=== PATIENT | male | born 1930 | race Caucasian/White ===

== ENCOUNTER 2016-07-26 15:53 | Inpatient (IN) | payer MEDICARE, OTHER ==
--- NOTE | ~2016-07-26 | CN ---
Consultation Report [facility] [address] [place]. [address] NAME: LORENA LARA : 31 STATUS : ADM IN PAT#: [id number] AGE: 86 ADM/REG DATE : 07/26/16 MR#: [id number] REPORT SERV DATE: 07/27/16 DICTATED BY: HILARIO EVANS DATE: 07/27/16 REPORT STATUS : Draft TRANSCRIBED BY: MODL DATE: 07/27/16 CARDIOLOGY CONSULTATION DATE OF CONSULTATION: 07/27/2016 REASON FOR CONSULTATION: CAD, permanent atrial fibrillation with chronic anticoagulation, and chronic systolic congestive heart failure with implantable defibrillator. HISTORY OF PRESENT ILLNESS: An 86-year-old male with severe COPD and cardiac disease, who presents with primary complaints of constipation, low abdominal/inguinal pain and worsening dyspnea. The patient with marked leukocytosis with a WBC of greater than 40,000, elevated lactate on admission. No findings consistent with acute CHF exacerbation clinically; however, beta natriuretic peptide elevated to 711. Minimally elevated troponins of 0.12 and 0.12. The patient denies chest pain. Reports chronic dyspnea, which has become worsened. Denies any defibrillator discharge. He also reports significant dysuria and as previously stated, constipation. At time of presentation reported no bowel movement for three days. He had attempted treatment with magnesium citrate without relief. The patient was admitted for sepsis and begun treatment for the same. No obvious etiology for elevated white count on presentation. I am begun on empiric antibiotics. PAST MEDICAL HISTORY: 1. 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 2. Coronary artery disease with previous CAMRYN to left circumflex in 2014 and balloon angioplasty only to LAD lesion due to heavy calcification and inability to cross the lesion with a stent. 3. Permanent atrial fibrillation, rate controlled. 4. The patient declines chronic anticoagulation due to previous history of GI bleed. 5. Chronic systolic congestive heart failure/ischemic cardiomyopathy with ejection fraction of 40% by echo, 03/18/2016. 6. Defibrillator in situ, [employer]tronic brand dual-chamber device, the most recent generator replacement on 07/19/2012. a. Previous pulmonary and hepatic toxicity related amiodarone. 7. Mitral regurgitation, mild echo on 02/2016. 8. Chronic kidney disease, stage III. 9. Hypertension. 10.Hyperlipidemia. 11.History of colorectal carcinoma status post partial colectomy. 12.Obstructive sleep apnea. 13.Peripheral neuropathy. 14.Type 2 diabetes mellitus. SOCIAL HISTORY: Denies tobacco, alcohol, or illicit drug use. The patient denies tobacco use for the last 10 years. Consultation Report [place] [address] [place]. [address] NAME: LORENA LARA : 31 STATUS : ADM IN PAT#: [id number] AGE: 86 ADM/REG DATE : 07/26/16 MR#: [id number] REPORT SERV DATE: 07/27/16 DICTATED BY: HILARIO EVANS DATE: 07/27/16 REPORT STATUS : Draft TRANSCRIBED BY: BON DATE: 07/27/16 FAMILY HISTORY: Noncontributory. ALLERGIES: AMIODARONE WITH PULMONARY AND HEPATIC TOXICITY IN THE PAST, INFLUENZA VACCINE WITH SUBCUTANEOUS REACTION DIFFUSELY. REVIEW OF SYSTEMS: Negative for all organ systems except per the history of present illness. PHYSICAL EXAMINATION: VITALS: Blood pressure 138/63, pulse 69 and regular, respirations 20 and unlabored, saturating 97% on 3 L nasal cannula, weight 84 kg. GENERAL: Elderly overweight male, in no acute distress. HEENT: Normal. NECK: Supple, no JVD or bruit, normal carotid upstroke bilaterally, no thyromegaly. LUNGS: Diffuse wheezing in all lung rodriguez. CARDIOLOGY: Regular rhythm, normal S1, S2, no thrill, no murmur, rubs or gallops, normal PMI. ABDOMEN: Mild tenderness to palpation diffusely. No peritoneal signs. EXTREMITIES: 1+ pitting edema at the ankles bilaterally. SKIN: Warm and dry, no significant rash. NEUROLOGIC: Alert and oriented x 3. Appropriate mood. LABORATORY DATA: Sodium 135, potassium 3.3, chloride 87, CO2 of 32, BUN 76, creatinine 1.97, GFR 35, glucose 135, magnesium 3.1. WBC 40.8, hemoglobin 13.7, hematocrit 41.7, platelets 133,000. Serial troponin 0.12 and 0.12. Beta natriuretic peptide yesterday 711. IMPRESSION: 1. Chronic systolic congestive heart failure, no significant volume overload by exam. Continue current medications. 2. Nonsustained ventricular tachycardia, currently on sotalol. No defibrillator discharge. Continue same. 3. Coronary artery disease, minimal troponin elevations. It has felt consistent with a demand-related event. No symptoms of ischemia/chest pain. Continue current medications. 4. Permanent atrial fibrillation as he has adequate rate control on current medications/sotalol. Continue the same. The patient has previously the declined chronic anticoagulation due to recurrent gastrointestinal bleeds. 5. Leukocytosis with dysuria, abdominal pain, and constipation/fecal impaction, currently being managed by the primary care physician. Thank you for the opportunity to see the patient in consultation. We will continue to follow the patient with you to ensure stable cardiac status over the next several days. Consultation Report [facility] [address] [facility] [place]. [address] NAME: LORENA LARA : 31 STATUS : ADM IN [facility]#: [id number] AGE: 86 ADM/REG DATE : 07/26/16 MR#: [id number] REPORT SERV DATE: 07/27/16 DICTATED BY: HILARIO EVANS DATE: 07/27/16 REPORT STATUS : Draft TRANSCRIBED BY: BON DATE: 07/27/16 CSL/BON Thalia Evans M.D. / [id number] CC: Valerie Manzanares M.D.
--- NOTE | ~2016-07-26 | DS ---
Discharge Summary [place] [address] [facility] [place]. [address] NAME: LORENA LARA : 31 STATUS : ADM IN [facility]#: [id number] AGE: 86 ADM/REG DATE : 07/26/16 MR#: [id number] REPORT SERV DATE: 07/29/16 DICTATED BY: FABIOLA JIMÉNEZ DATE: 07/29/16 REPORT STATUS : Draft TRANSCRIBED BY: MODL DATE: 07/29/16 ADMISSION DATE: 07/26/2016 DISCHARGE DATE: 07/29/2016 DISCHARGE DIAGNOSES: 1. Acute on chronic respiratory failure, improved back to his normal respiratory status. 2. Chronic obstructive pulmonary disease exacerbation. 3. Fecal impaction, disimpacted having daily bowel movement without any problem. We are adding MiraLAX powder once a day. 4. Persistent leukocytosis. We doubt infectious etiology. 5. Chronic systolic heart failure, improved and stable. 6. Diabetes mellitus, had episode of hypoglycemia with his home regimen and the patient was reluctant to change any insulin regimen. 7. Nonsustained ventricular tachycardia, his beta-donna has been increased to Toprol-XL 150 mg once a day by Dr. Bolaños. 8. Urinary retention status post Martin catheter insertion. Discussed with Dr. Li and recommended going home with Martin catheter and he will evaluate this patient as an outpatient. CONSULTANTS: 1. Thalia Evans M.D. 2. William Bolaños M.D. HISTORY OF PRESENT ILLNESS: This is an 86-year-old male patient, who does have a severe COPD with heart failure, came in to the hospital with palpitation and short of breath. Please see dictated H and P. HOSPITAL COURSE: He was admitted to the hospital with a respiratory failure with fecal impaction. He had a manually disimpaction done and his breathing status has been improved. Meanwhile, he was treated for both condition and COPD exacerbation and heart failure exacerbation mildly and improved. During the hospitalization, he was found to have nonsustained ventricular tachycardia, which was treated with the increasing dose of beta-donna. Seen by Dr. Bolaños throughout the hospitalization. Overall, he had improvement and stable hospitalization. Seen by the physical therapist, recommended home and home health and he refused to have a home health service. He does have his home exercise regimen at home and he will like to continue that his own way. Again for his fecal impaction, it was disimpacted and then recommended taking extra MiraLAX powder. Maximized inpatient benefit, will be discharged to home with followup with Dr. Evans. During this hospitalization, he had echocardiogram that showed a slight decrease of left Discharge Summary [facility] [address] [place] [address] NAME: LORENA LARA : 31 STATUS : ADM IN PAT#: [id number] AGE: 86 ADM/REG DATE : 07/26/16 MR#: [id number] REPORT SERV DATE: 07/29/16 DICTATED BY: FABIOLA JIMÉNEZ DATE: 07/29/16 REPORT STATUS : Draft TRANSCRIBED BY: BON DATE: 07/29/16 ventricular function down to 30% and it showed a moderate mitral regurgitation and left atrial enlargement. Overall, he had improvement and maximized benefit from inpatient care and will be discharged to home in stable condition. DISCHARGE MEDICATIONS: 1. Sotalol was increased to 120 mg once at nighttime. 2. Metoprolol was increased to 150 mg once a day. 3. We will continue Lasix 80 mg once a day, Zaroxolyn as needed, and continue Proscar 5 mg once a day, Colace twice a day and Lipitor 40 mg once at nighttime, aspirin 81 mg once a day, and potassium 20 mEq three times a day, Neurontin 200 mg twice a day, Nexium 20 mg once in the morning time, Flomax 0.4 mg once at nighttime, Spiriva once a day, Symbicort twice a day, Proventil as needed and we are changing digoxin to every other day due to the high level. 4. He was on the Levemir 70 unit twice a day with NovoLog 50 units for each meal and he will like to continue this regimen based on primary care's recommendation. DISPOSITION: The patient is discharged to home. Follow up with Dr. Li and primary care physician. TIME SPENT: More than 30 minutes in discharge and coordination. EKL/MODL Fabiola Jiménez M.D. / [id number] CC: Valerie Wang M.D.
--- NOTE | ~2016-07-26 | HP ---
History And Physical [place] [id number] [facility] [place]. [address] NAME: LORENA RODARTE : 31 STATUS : ADM IN [facility]#: [id number] AGE: 86 ADM/REG DATE : 07/26/16 MR#: [id number] REPORT SERV DATE: 07/27/16 DICTATED BY: PRSETON CAMPOS DATE: 07/27/16 REPORT STATUS : Draft TRANSCRIBED BY: MODL DATE: 07/27/16 DATE OF ADMISSION: 07/26/2016 CHIEF COMPLAINT: Shortness of breath and constipation. HISTORY OF PRESENT ILLNESS: This is an 86-year-old male, who presents to the emergency room at [facility] with the above-mentioned complaint. History is obtained from the patient, his who is at bedside, and reviewing data available on the [employer] system. Mr. Rodarte is an 86-year-old gentleman, who started having shortness of breath this morning. He has been having constipation for the last three to four days and they had tried just about everything qvlq-vbr-asslgsm what they had. He had even tried a whole tube of magnesium citrate. He states he also had a cough, productive of greenish sputum since and this has progressively worsened as well. He has had dysuria for two to three days now. He says he feels like he has to go often and it cisneros when he passes urine. They finally decided to come to the emergency room to be evaluated. In the emergency room, initial workup revealed that he had ymoox-bc-wunlkvk systolic and diastolic heart failure. He had an elevated troponin of 0.12, lactate of 2.9, BNP was 711 and he also had a white count of 40.8. His chest x-ray showed left-sided infiltrate when compared to previous films. Hospitalist Service is asked to admit him for further evaluation and treatment. At the time of my evaluation, he denied any chest pain or palpitations. He had no orthopnea. He did have a cough, productive of greenish sputum. Denied any hemoptysis, night sweats, or weight loss during this time. He has had no recent falls or loss of consciousness. Did have some fever, low-grade and he did feel chills. No history of nausea and vomiting. No history of diarrhea, but instead constipation for the last three to four days. No other history of recent travel or exposures. He denied any hematemesis or hematochezia or hematuria. PAST MEDICAL HISTORY: Significant for history of hypertension, ischemic cardiomyopathy with AICD placement, diabetes mellitus type 2, colon cancer status post resection. He also has history of lung cancer. He has chronic kidney disease; chronic hypoxic respiratory failure, on supplemental oxygen therapy. He also has a history of nonsustained ventricular tachycardia and persistent leukocytosis. SOCIAL HISTORY: He does not smoke, drink, or use recreational drugs. FAMILY HISTORY: Noncontributory. MEDICATIONS: His medications at home were reviewed by me in the chart today and reordered by me. REVIEW OF SYSTEMS: History And Physical [address] [address] NAME: LORENA RODARTE : 31 STATUS : ADM IN PAT#: [id number] AGE: 86 ADM/REG DATE : 07/26/16 MR#: [id number] REPORT SERV DATE: 07/27/16 DICTATED BY: PRESTON CAMPOS DATE: 07/27/16 REPORT STATUS : Draft TRANSCRIBED BY: BON DATE: 07/27/16 As in history of present illness. All other systems were reviewed in detail and quite unremarkable. PHYSICAL EXAMINATION: GENERAL: This is a pleasant 86-year-old, not in any acute distress. HEENT: Head is atraumatic, normocephalic. He is alert, awake, oriented to time, place, and person. Pupils are equal, reacting to light and accommodating. External ocular muscles are intact. Membranes are moist and pink. Sclerae are nonicteric. NECK: Supple with no jugular venous distention, lymphadenopathy, or thyromegaly. LUNGS: Auscultation of his lungs revealed fair to good air entry bilaterally with no wheezes, rubs, or crackles. There were no expiratory wheezes. HEART: Heart sounds were regular with no murmurs, rubs, or gallops. ABDOMEN: Soft, nontender. Bowel sounds are present. EXTREMITIES: Showed no cyanosis, clubbing, or edema. NEUROLOGIC: Grossly intact. No focal sensory or motor deficits. Higher functions appeared intact. He was able to move all four extremities. VITAL SIGNS: His temperature today was 99.6 degrees Fahrenheit upon arrival. His pulse was 71, respirations were 18 a minute, and blood pressure upon arrival was 137/67. Oxygen saturations were 97% on 2 L via nasal cannula. LABORATORY DATA: Reviewed on the [employer] system showed a pH of 7.54, pCO2 of 39, PaO2 of 71, and bicarbonate was 32.4. This was on 4 L via nasal cannula. CMP showed a sodium of 135, potassium was 3.3, chloride 87, CO2 of 34, BUN was 76 with a creatinine of 1.97, which is about his baseline. His glucose was 158. Initial troponin was 0.12, this is up from his baseline of 0.4. His BNP today was 711.2. CBC showed a white blood cell count of 40,800, this is almost doubled to where it was. He was in the 20,000 to 23,000 usually. Hemoglobin was 13.7 today, hematocrit 41.7, platelet count was 133,000. Urinalysis was grossly unremarkable. Films of the chest x-ray were reviewed by me on the PACS today. Today's films were compared to prior films available on the PACS as well. Today's films show normal bony architecture with a left-sided AICD and cardiomegaly. There is a small right lower lobe infiltrate when compared to prior films. A 12-lead EKG done in the emergency room was reviewed and interpreted by me. There is ventricular paced rhythm at 70. IMPRESSION: 1. Shortness of breath. 2. Dysuria. 3. Vyaxo-cc-obotcws systolic and diastolic congestive heart failure. 4. Elevated troponin. 5. Sepsis. 6. Pneumonia. 7. Leukocytosis. 8. Volume overload. 9. Hypertension. 10.Ischemic cardiomyopathy with an AICD placed. 11.Diabetes mellitus type 2. 12.Persistent leukocytosis. 13.Chronic kidney disease. History And Physical [address] [address] NAME: LORENA RODARTE : 31 STATUS : ADM IN [facility]#: [id number] AGE: 86 ADM/REG DATE : 07/26/16 MR#: [id number] REPORT SERV DATE: 07/27/16 DICTATED BY: PRESTON CAMPOS DATE: 07/27/16 REPORT STATUS : Draft TRANSCRIBED BY: MODL DATE: 07/27/16 PLAN: We will admit Mr. Rodarte to the Hospitalist Service on telemetry bed. We will start him on intravenous diuretics. Follow daily weights and outputs and also get an echocardiogram. We will go ahead and consult his compo conveyor operator, Dr. Evans to see him here. Follow serial troponins and rule out acute coronary syndrome. After cultures are obtained, we will start him on empiric IV antibiotics. We will start him on Zosyn and vancomycin and check his procalcitonin level as well. We will start him on blood sugar control with NovoLog given subcutaneously per sliding scale as well. He is currently not on anticoagulation because of the risk of bleeding. We will continue all other medications and treatments at this time and place him on unfractionated heparin for DVT prophylaxis while here. Please see today's orders for details. I have discussed the above plans with the patient. His questions were answered and he is agreeable to the above recommendations. Hospitalist Service will be following him during his stay here. /MODL Preston Campos M.D. / [id number] CC: Valerie Manzanares M.D.
[~2016-07-26 15:53] MED LIST: ACET500CAP PO; ADVAIR250 INH; ALBUTEROL SULFATE INH; ALBUTEROL5 INH; AMARYL1 MG PO; ANTARA PO; ASA5GR PO; ASAB PO; ASABAYER PO; BETAPACE AF120 MG PO; BUM1 PO; BUM2 PO; BYETTA10 SC; CARDU4 PO; CARDURA XL4 MG PO; CEFT5 PO; CIP5 PO; CO Q-10100 MG PO; COQ10100 MG PO; COREG12 PO; COREG6 PO; CORTISONE SHOT SC; CRESTOR20 MG PO; CRESTOR40 MG PO; DIGITEK0.125 MG PO; DSS PO; FLEX PO; FLOMAX4 PO; FRESHKOTE OPH; GLUCOPHAGE1000 MG PO; HEMOCYTE324 MG PO; IMDUR30 PO; INTEGRA PLUS C1 EACH PO; INTEGRA PO; IRON325 MG PO; JANTOVEN2 MG PO; JANTOVEN3 MG PO; K-TABS10 MEQ PO; KLOR-CON 1010 MEQ PO; KLOR-CON M2020 MEQ PO; L80 PO; LEVAQUIN750 MG PO; LEVEMIR SC; LIPITOR40 PO; LOP100 PO; LOVAZA1 GM PO; LYRICA50 PO; MAGNESIUM PO; MAGONATE PO; MAGOX4 PO; MAGTRATE500 MG PO; MIRALAXPKT PO; NEUR100 PO; NEXIUM20 M1 PO; NORV25 PO; NOVOLOG SC; NOVOLOG SQ; P10 PO; PLAVIX PO; POT CHLOR PO; POT GLUCONAT595 M1 PO; PROAIR HFA PO; PROSCAR5 PO; PROTONIX PO; PROVENTSOL INH; SLOW FE160 MG PO; SPIRIVA INH; SPIRO25 PO; STOOL SOFTEN100 MG PO; SYMBICORT 160/41 INH INH; SYMBICORT PO; TOPXL100 PO; TOPXL50 PO; TRICOR145 PO; VITAMIN D1000 UNI1 PO; VITAMIN D31000 UNIT PO; ZAROX2.5B PO; ZESTRIL5 MG PO; [UNRECOGNIZED DRUG - OTHER] PO
[2016-07-26 20:34] LABS: ASCORBIC ACID (UR NOT ORDER) NEG (NEG); BILIRUBIN, URINE NEGATIVE (NEG); ER URINALYSIS TAT 0 Hrs 09 Mins; KETONE, URINE NEGATIVE (NEG); LEUKOCYTE ESTERASE(NOT OR NEG (NEG); NITRITE (URINE) NEG (NEG); WBC (NOT ORDERED) (RFLEX) < 1 (0-5)
[2016-07-26 20:38] LABS: BASOPHILS 0.3 %; BASOPHILS ABSOLUTE 0.11 10/3/uL (0.0-0.16); EOSINOPHILS 0 %; EOSINOPHILS ABSOLUTE 0.01 10/3/uL (0.0-0.53); IMMATURE GRANULOCYTES 2.1 %; LYMPHOCYTES 8.7 %; LYMPHOCYTES ABSOLUTE 3.54 10/3/uL (0.67-4.30); MEAN CORPUSCULAR VOLUME 85.3 fL (80-100); MONOCYTES 6.3 %; MONOCYTES ABSOLUTE 2.58 10/3/uL (0.21-1.20); NEUTROPHILS 82.6 %; NEUTROPHILS ABSOLUTE 33.69 10/3/uL (2.02-8.40); RBC DISTRIBUTION WIDTH 19.1 % (12.0-16.0)
[2016-07-26 20:40] LABS: INTERNATIONAL NORMAL RATI 1.1 UNITS (-); PARTIAL THROMBO TIME 31.8 SEC (22.5-37.2); PROTIME (NOT ORD) 13.8 SEC (12.0-14.5)
[2016-07-26 20:44] LABS: ER CBC TAT 0 Hrs 21 Mins; HEMATOCRIT 41.7 % (40.0-51.0); HEMOGLOBIN 13.7 g/dL (13.6-17.8); MEAN CORPUS HGB CONC 32.9 g/dL (32.0-36.0); RED CELL COUNT 4.89 10/6/uL (4.7-6.1); WHITE BLOOD CELLS 40.8 10/3/uL (4.5-10.5)
[2016-07-26 20:45] LABS: IMMATURE GRANULOCYTES ABSOLUTE 0.87 10/3/uL (0.0-0.11); MANUAL DIFF NO %; PLATELET COUNT 133 10/3/uL (150-400)
[2016-07-26 21:01] LABS: BAND NEUTROPHILS 22 %; ELLIPTOCYTES 3+ (>30/OIF) (0-2/OIF); ER DIFF TAT 0 Hrs 38 Mins; LYMPHOCYTES 5 %; LYMPHOCYTES ABSOLUTE (CALC) 2.04 10/3/uL (0.67-4.30); MONOCYTES 7 %; MONOCYTES ABSOLUTE (CALC) 2.86 10/3/uL (0.21-1.20); SEGMENTED NEUTROPHIL (0) 66 %; TOTAL NUCLEATED CELLS 100
[2016-07-26 21:15] LABS: BE (BASE EXCESS) 9.2 MEQ/L (0 +/- 2.5); CARBOXYHEMOGLOBIN 1.9 % (0-3); DEVICE NC; HCO3 (ACTUAL BICARBONATE) 32.4 MEQ/L (23-27); HEMOBLOGIN CONTENT 13.5 G/DL (14-18); INSTRUMENT SERIAL # 8087; METHEMOGLOBIN 0.6 % (0-3); O2 CONTENT 17.5 VOL% (18-24); PCO2 (CO2 TENSION) 39 MMHG (35-45); PO2 (O2 TENSION) 71 MMHG (79-93); SAMPLE Arterial; pH 7.54 (7.37-7.43)
[2016-07-26 21:23] LABS: LACTATE 2.9 MMOL/L (0.3-2.4)
[2016-07-26 21:29] LABS: CALCIUM, SERUM 9.2 MG/DL (8.5-10.4); CREATININE 1.97 MG/DL (0.70-1.30); GFR AFRICAN AMERICAN 35 ML/MIN (>=60); GFR NON AFRICAN AMERICAN 30 ML/MIN (>=60); POTASSIUM, SERUM 3.3 MMOL/L (3.5-5.3); SODIUM, SERUM 135 MMOL/L (135-148)
[2016-07-26 21:30] LABS: BUN (BLOOD UREA NITROGEN) 76 MG/DL (6-23); CHLORIDE, SERUM 87 MMOL/L (96-112); CO2 (CARBON DIOXIDE) 34 MMOL/L (24-34); GLUCOSE, SERUM 158 MG/DL (60-99)
[2016-07-26 21:31] LABS: CHEST PAIN PROFILE TAT 1 Hrs 08 Mins; TROPONIN I 0.12 NG/ML (<0.05)
[2016-07-26] MEDS ORDERED: PROSCAR5 PO (21:43)
[2016-07-27 08:00] LABS: HEMATOCRIT 39.8 % (40.0-51.0); MEAN CORPUS HGB CONC 32.7 g/dL (32.0-36.0); MEAN CORPUSCULAR VOLUME 85.6 fL (80-100); PLATELET COUNT 105 10/3/uL (150-400); RBC DISTRIBUTION WIDTH 19.6 % (12.0-16.0); RED CELL COUNT 4.65 10/6/uL (4.7-6.1)
[2016-07-27 08:01] LABS: MANUAL DIFF YES %; WHITE BLOOD CELLS 42.4 10/3/uL (4.5-10.5)
[2016-07-27 08:21] LABS: BUN (BLOOD UREA NITROGEN) 72 MG/DL (6-23); CALCIUM, SERUM 9.2 MG/DL (8.5-10.4); CHLORIDE, SERUM 90 MMOL/L (96-112); CO2 (CARBON DIOXIDE) 31 MMOL/L (24-34); CREATININE 2.03 MG/DL (0.70-1.30); GFR AFRICAN AMERICAN 34 ML/MIN (>=60); GFR NON AFRICAN AMERICAN 29 ML/MIN (>=60); GLUCOSE, SERUM 140 MG/DL (60-99); POTASSIUM, SERUM 3.5 MMOL/L (3.5-5.3); SODIUM, SERUM 133 MMOL/L (135-148); TROPONIN I 0.12 NG/ML (<0.05)
[2016-07-27 08:25] LABS: B NATRIURETIC PEPTIDE (BNP) 731.7 PG/ML (< 100.0)
[2016-07-27 09:47] LABS: ANISOCYTOSIS 1+ (5-10/OIF) (0-5/OIF); BAND NEUTROPHILS 16 %; LYMPHOCYTES 1 %; LYMPHOCYTES ABSOLUTE (CALC) 0.42 10/3/uL (0.67-4.30); MONOCYTES 11 %; MONOCYTES ABSOLUTE (CALC) 4.66 10/3/uL (0.21-1.20); NEUTROPHILS ABSOLUTE (CALC) 37.31 10/3/uL (2.02-8.40); PLATELET ESTIMATE SLT DEC (ADEQUATE); SEGMENTED NEUTROPHIL (0) 72 %; TOTAL NUCLEATED CELLS 100
[2016-07-27 09:48] LABS: ELLIPTOCYTES 3+ (>30/OIF) (0-2/OIF); TOXIC GRANULATION 1+
[2016-07-27 13:44] LABS: TOTAL BILIRUBIN 1.3 MG/DL (0-1.2); TOTAL PROTEIN 6.7 G/DL (6.0-8.5)
[2016-07-27 13:46] LABS: ALBUMIN 2.4 G/DL (3.5-5.0); DIRECT BILIRUBIN 0.4 MG/DL (0.0-0.4); INDIRECT BILIRUBIN(NOT ORDER) 0.9 MG/DL (0.1-0.9)
[2016-07-27 14:13] LABS: TROPONIN I 0.11 NG/ML (<0.05)
[2016-07-27 14:14] LABS: DIGOXIN 2.1 NG/ML (0.8-2.0)
[2016-07-27 14:21] LABS: PROCALCITONIN 0.3 ng/mL (<0.5)
[2016-07-27 17:02] LABS: HEMATOCRIT 42.6 % (40.0-51.0); HEMOGLOBIN 12.9 g/dL (13.6-17.8); MEAN CORPUSCULAR HEMOGLOB 26.9 pg (26.0-34.0); PLATELET COUNT 110 10/3/uL (150-400); RBC DISTRIBUTION WIDTH 20.3 % (12.0-16.0)
[2016-07-27 17:03] LABS: MEAN CORPUS HGB CONC 30.3 g/dL (32.0-36.0); MEAN CORPUSCULAR VOLUME 88.8 fL (80-100); WHITE BLOOD CELLS 40.1 10/3/uL (4.5-10.5)
[2016-07-27 17:05] LABS: DIFFERENTIAL ORDERED Y
[2016-07-27 17:41] LABS: ANISOCYTOSIS 1+ (5-10/OIF) (0-5/OIF); BAND NEUTROPHILS 29 %; LYMPHOCYTES 2 %; METAMYELOCYTES 2 %; MONOCYTES 11 %; MONOCYTES ABSOLUTE (CALC) 4.41 10/3/uL (0.21-1.20); NEUTROPHILS ABSOLUTE (CALC) 34.09 10/3/uL (2.02-8.40); PLATELET ESTIMATE SLT DEC (ADEQUATE); SEGMENTED NEUTROPHIL (0) 56 %; TOTAL NUCLEATED CELLS 100; TOXIC GRANULATION 1+
[2016-07-27 17:42] LABS: ACANTHOCYTES OCC (0-2/OIF); SCHISTOCYTES OCC (0-2/OIF)
[2016-07-28 03:47] LABS: HEMOGLOBIN 11.5 g/dL (13.6-17.8); MEAN CORPUS HGB CONC 32.5 g/dL (32.0-36.0); MEAN CORPUSCULAR HEMOGLOB 27.8 pg (26.0-34.0); MEAN CORPUSCULAR VOLUME 85.7 fL (80-100); PLATELET COUNT 106 10/3/uL (150-400); RBC DISTRIBUTION WIDTH 19.5 % (12.0-16.0); RED CELL COUNT 4.13 10/6/uL (4.7-6.1)
[2016-07-28 03:50] LABS: HEMATOCRIT 35.4 % (40.0-51.0); MANUAL DIFF YES %; WHITE BLOOD CELLS 40.4 10/3/uL (4.5-10.5)
[2016-07-28 04:02] LABS: BUN (BLOOD UREA NITROGEN) 74 MG/DL (6-23); CALCIUM, SERUM 8.6 MG/DL (8.5-10.4); CHLORIDE, SERUM 93 MMOL/L (96-112); CO2 (CARBON DIOXIDE) 33 MMOL/L (24-34); CREATININE 1.91 MG/DL (0.70-1.30); GFR AFRICAN AMERICAN 36 ML/MIN (>=60); GFR NON AFRICAN AMERICAN 31 ML/MIN (>=60); GLUCOSE, SERUM 131 MG/DL (60-99); POTASSIUM, SERUM 3.5 MMOL/L (3.5-5.3); SODIUM, SERUM 136 MMOL/L (135-148)
[2016-07-28 04:11] LABS: ANISOCYTOSIS 1+ (5-10/OIF) (0-5/OIF); BAND NEUTROPHILS 8 %; ELLIPTOCYTES 1+ (3-10/OIF) (0-2/OIF); LYMPHOCYTES 2 %; LYMPHOCYTES ABSOLUTE (CALC) 0.81 10/3/uL (0.67-4.30); MONOCYTES 6 %; MONOCYTES ABSOLUTE (CALC) 2.42 10/3/uL (0.21-1.20); NEUTROPHILS ABSOLUTE (CALC) 37.17 10/3/uL (2.02-8.40); PLATELET ESTIMATE SLT DEC (ADEQUATE); SEGMENTED NEUTROPHIL (0) 84 %; TOTAL NUCLEATED CELLS 100
[2016-07-29 05:27] LABS: ALBUMIN 2.1 G/DL (3.5-5.0); BUN (BLOOD UREA NITROGEN) 76 MG/DL (6-23); CALCIUM, SERUM 8.5 MG/DL (8.5-10.4); CHLORIDE, SERUM 97 MMOL/L (96-112); CO2 (CARBON DIOXIDE) 33 MMOL/L (24-34); CREATININE 1.84 MG/DL (0.70-1.30); GFR AFRICAN AMERICAN 38 ML/MIN (>=60); GFR NON AFRICAN AMERICAN 33 ML/MIN (>=60); PHOSPHORUS, SERUM 3.1 MG/DL (2.5-4.5); POTASSIUM, SERUM 3.3 MMOL/L (3.5-5.3); SODIUM, SERUM 139 MMOL/L (135-148)
[2016-07-29 05:32] LABS: DIGOXIN 1.9 NG/ML (0.8-2.0); GLUCOSE, SERUM 55 MG/DL (60-99)
[2016-07-29] MEDS ORDERED: LAN125 PO ×2 (13:59→14:00)
[2016-07-29] MEDS ORDERED: ASAB PO (14:02)
[2016-07-29] MEDS ORDERED: VIB50 PO (14:03)
[2016-07-29] MEDS ORDERED: STERAPRED DS10 MG PO (14:05)
== END 2016-07-29 15:29 | disposition home or self-care (01) | DRG 189 ==
LOC: ER 15:53 → 5NO 22:42
PROVIDERS: Hospitalist; Internal Medicine; Internal Medicine Pulmonary Disease; Specialist
DX: J96.21 Acute and chronic respiratory failure with hypoxia (principal); I47.2 Ventricular tachycardia; I50.23 Acute on chronic systolic (congestive) heart failure; J44.1 Chronic obstructive pulmonary disease with (acute) exacerbation; I13.0 Hypertensive heart and chronic kidney disease with heart failure and stage 1 through stage 4 chronic kidney disease, or unspecified chronic kidney disease; E11.42 Type 2 diabetes mellitus with diabetic polyneuropathy; I48.2 Chronic atrial fibrillation; I25.5 Ischemic cardiomyopathy; Z95.810 Presence of automatic (implantable) cardiac defibrillator; Z79.01 Long term (current) use of anticoagulants; N18.3 Chronic kidney disease, stage 3 (moderate); E78.5 Hyperlipidemia, unspecified; G47.33 Obstructive sleep apnea (adult) (pediatric); E87.6 Hypokalemia; K56.41 Fecal impaction; R33.9 Retention of urine, unspecified; Z79.4 Long term (current) use of insulin
CPT/HCPCS: 36600; 71010; 74000; 80048; 80069; 80076; 80162; 81001; 82805; 82947; 82962; 83036; 83605; 83735; 83880; 84145; 84443; 84484; 85007; 85025; 85027; 85610; 85730; 87040; 87449; 93005; 94640; 96374; 96375; 97161-GP; 99291; A9270-GY; C8929; G8978-CJ-GP; G8979-CI-GP; J1885; J2543; J3010; J3370; Q9957

== ENCOUNTER 2016-07-31 09:13 | Inpatient (IN) | payer MEDICARE, OTHER ==
--- NOTE | ~2016-07-31 | DS ---
Discharge Summary [facility] [address] [place]. [address] NAME: LORENA LARA : 31 STATUS : ADM IN [facility]#: [id number] AGE: 86 ADM/REG DATE : 07/31/16 MR#: [id number] REPORT SERV DATE: 08/05/16 DICTATED BY: DANNIE PLATT DATE: 08/04/16 REPORT STATUS : Draft TRANSCRIBED BY: MODGreg DATE: 08/04/16 ADMISSION DATE: 07/31/2016 DISCHARGE DATE: 08/05/2016 CONSULTATIONS: 1. Markie Molina M.D. for GI. 2. Tyrese Sims M.D. for Palliative Care. PROCEDURES DONE: 1. On 07/31/2016 chest x-ray. Right lung infiltrate mildly improved, there is right middle lobe atelectasis. 2. On 07/31/2016, chest x-ray PA and lateral, developing right lower lobe pneumonia. 3. On 07/31/2016 CT abdomen and pelvis without contrast. No acute intraabdominal injury identified. Multiple small gallstones without biliary distention. No fracture or pneumothorax seen. 4. On 07/31/2016 x-ray of right elbow, exophytic projection involving the right radial head-neck junction on single view. This may represent mild impaction fracture. This is more likely than this representing a small osteophyte. Mild osteoarthritis of the right elbow. 5. On 08/03/2016 x-ray of left rib, acute fractures involving left 7th, 8th, and 9th ribs. REASON FOR ADMISSION: Lower GI bleed with generalized weakness. HISTORY OF HOSPITAL STAY: An 86-year-old white male with past medical history of COPD with chronic oxygen, chronic hypoxic hypercapnic respiratory failure, atrial fibrillation, coronary disease, COPD, chronic systolic CHF with ischemic cardiomyopathy EF of 40%, diabetes type 2, hypertension, hyperlipidemia, history of colon cancer status post right- sided hemicolectomy, presenting with lower GI bleed and generalized weakness. The patient was initially admitted for further workup of the patient's lower GI bleed. GI was consulted for further evaluation of the patient's lower GI bleed. However, the patient did not want to have any procedures none. At which point, during the hospital stay the patient was seen by Hospice. Hospice recommended that the patient's defibrillator be turned off, but unfortunately, the patient wanted to talk with Cardiology, specifically with Dr. Evans regarding turning off the pacemaker. Upon further discussion with the , I explained extensively that the patient's demise will not be from a cardiac issue, but more from a COPD and the results of anemia from blood loss. I explained extensively to the patient's that the patient's condition will more likely be exacerbated if the defibrillator fires to prevent ventricular tachycardia. The patient's is fully aware what happens when the patient's defibrillator fires and felt the course of action would be to turn it off and send the patient to hospice. This was also discussed with hospice nurse who was present in the room, and the patient is willing to go home with hospice, but the patient requested blood transfusion prior to discharge that he can be safely discharged home. DISPOSITION: The patient is feeling fine. No complaints. ACTIVITY: As tolerated. Discharge Summary [address] [address] NAME: LORENA LARA : 32 STATUS : ADM IN [facility]#: [id number] AGE: 86 ADM/REG DATE : 07/31/16 MR#: [id number] REPORT SERV DATE: 08/05/16 DICTATED BY: DANNIE PLATT DATE: 08/04/16 REPORT STATUS : Draft TRANSCRIBED BY: BON DATE: 08/04/16 DIET: As tolerated. MEDICATIONS UPON DISCHARGE: 1. Lipitor 40 mg p.o. daily. 2. Digoxin 0.125 mg p.o. daily. 3. Colace 100 mg p.o. b.i.d. 4. Proscar 5 mg p.o. daily. 5. Lasix 80 mg p.o. daily. 6. Zaroxolyn 2.5 mg p.o. p.r.n. 7. Gabapentin 200 mg p.o. b.i.d. 8. Levemir 70 units subcu b.i.d. 9. NovoLog 5 units before breakfast and supper. 10.Imdur 15 mg p.o. daily. 11.Toprol-XL 150 mg p.o. daily. 12.Potassium 20 mEq three times a day. 13.Sotalol 120 mg p.o. daily. 14.Flomax 0.4 mg p.o. daily. 15.Spiriva one tablet inhale daily. 16.Albuterol nebulizers three times a day. 17.Symbicort 160/4.5 mcg two puffs b.i.d. 18.Omeprazole 20 mg p.o. daily. DIAGNOSES UPON DISCHARGE: 1. Lower gastrointestinal bleed secondary to unknown etiology. 2. Anemia secondary to lower gastrointestinal bleed. 3. Chronic atrial fibrillation. 4. Chronic hypoxic hypercapnic respiratory failure. 5. Chronic obstructive pulmonary disease. 6. Coronary artery disease. 7. Congestive heart failure, systolic dysfunction secondary to ischemic cardiomyopathy. Ejection fraction of 40%. 8. Diabetes type 2. 9. Hypertension. 10.Hyperlipidemia. 11.History of colon cancer, status post right-sided hemicolectomy. YAMILETH/BON Dannie Platt MD / [id number] CC: Discharge Summary [address] [address] NAME: LORENA LARA : 32 STATUS : ADM IN [facility]#: [id number] AGE: 86 ADM/REG DATE : 07/31/16 MR#: [id number] REPORT SERV DATE: 08/05/16 DICTATED BY: DANNIE PLATT DATE: 08/04/16 REPORT STATUS : Draft TRANSCRIBED BY: MODL DATE: 08/04/16 MD Giuliano Ramos M.D.
--- NOTE | ~2016-07-31 | CN ---
Consultation Report [facility] [address] [place]. [address] NAME: LORENA RODARTE : 32 STATUS : ADM IN [facility]#: [id number] AGE: 86 ADM/REG DATE : 07/31/16 MR#: [id number] REPORT SERV DATE: 07/31/16 DICTATED BY: MARKIE MOLINA DATE: 07/31/16 REPORT STATUS : Draft TRANSCRIBED BY: MODrGeg DATE: 07/31/16 CONSULTATION DATE OF CONSULTATION: 07/31/2016 REASON FOR CONSULTATION: Hematochezia and post-hemorrhagic anemia. HISTORY OF PRESENT ILLNESS: Mr. Rodarte is an 86-year-old patient who was diagnosed last year with colon cancer and underwent a right hemicolectomy. He did undergo colonoscopy within the last year. He was recently admitted with fecal impaction and eventually required a manual disimpaction with some relief. He then presented at home yesterday where he felt weak and had a fall, and since 6 o'clock last night, he reports he has had multiple bloody bowel movements. The patient has been noted to have a significant drop in his hemoglobin with a hemoglobin of 7.7 currently and it was 11.5 on 07/28/2016. The patient reports he fell on his left side and is having tenderness up in the area where he did fall, but otherwise is not having any abdominal pain. PAST MEDICAL HISTORY: The patient's past medical history is extensive and includes chronic atrial fibrillation, history of heart failure, COPD, history of AICD, chronic renal insufficiency, history of colon cancer, history of diabetes. SOCIAL HISTORY: He does not smoke or drink. ALLERGIES: HE IS ALLERGIC TO AMIODARONE. MEDICATIONS: Include albuterol, atorvastatin, Plavix, digoxin, doxycycline, Nexium, furosemide, gabapentin, metolazone, metoprolol, potassium chloride, prednisone, sotalol, tamsulosin. FAMILY HISTORY: Noncontributory. REVIEW OF SYSTEMS: A 14-point review of systems was reviewed and was notable for weakness, fall, and shortness of breath. PHYSICAL EXAMINATION: VITAL SIGNS: Revealed a blood pressure of 113/59, temperature is 97.5, heart rate 70, respiratory rate is 22. GENERAL: The patient is lying in bed, in no apparent distress. He did appear slightly tachypneic with mildly labored breathing. HEENT: His head is atraumatic and normocephalic. SKIN: Revealed multiple ecchymoses all over the abdomen, arms, and his left flank. NECK: Revealed no crepitus or thyromegaly. LUNGS: Clear. Consultation Report [facility] [address] [place]. [address] NAME: LORENA RODARTE : 32 STATUS : ADM IN PAT#: [id number] AGE: 86 ADM/REG DATE : 07/31/16 MR#: [id number] REPORT SERV DATE: 07/31/16 DICTATED BY: MARKIE MOLINA DATE: 07/31/16 REPORT STATUS : Draft TRANSCRIBED BY: MODL DATE: 07/31/16 CARDIOVASCULAR: Regular rate and rhythm. ABDOMEN: Nontender. There was some left upper quadrant tenderness with what appears likely related to trauma. EXTREMITIES: Revealed no clubbing, cyanosis, or edema. LYMPHATIC: Revealed no lymphadenopathy in the neck or axilla. LABORATORY DATA: Laboratory evaluation was notable for a white blood cell count of 31 with a hemoglobin of 7.7, and platelets are 180. BUN is 88 with a creatinine of 1.92. IMPRESSION: Hematochezia. The patient describes as bright red blood per rectum and a recent history of colon cancer. He had a marked drop in his hemoglobin, question if some of this may be related to hematoma, although nothing was seen on the CT scan. At this point, I did discuss with the patient. He does not wish to proceed with any endoscopy. At this point, he wishes to obtain a blood transfusion and be reassessed tomorrow. He is understandable of this, but is unwilling to undergo endoscopy at this point. Therefore, we will observe the patient for now and reassess in the a.m. after blood transfusions. Thank you for allowing me to evaluate the patient. Please do not hesitate to contact me should you have any further concerns or questions. GO/MODL Markie Molina MD / [id number] CC: Valerie Wang M.D.
--- NOTE | ~2016-07-31 | HP ---
History And Physical [facility] [id number] [place]. [address] NAME: LORENA LARA : 32 STATUS : REG ER PAT#: [id number] AGE: 86 ADM/REG DATE : 07/31/16 MR#: [id number] REPORT SERV DATE: 07/31/16 DICTATED BY: FABIOLA JIMÉNEZ DATE: 07/31/16 REPORT STATUS : Draft TRANSCRIBED BY: MODGreg DATE: 07/31/16 DATE OF ADMISSION: 07/31/2016 CHIEF COMPLAINT: Generalized weakness status post fall and started to see bloody bowel movement last night. HISTORY OF PRESENT ILLNESS: This is an 86-year-old male patient, who was recently discharged from this hospital a few days ago after he was treated with a fecal impaction, came back to the hospital with generalized weakness and had a fall this morning between the cabinet and floor and also started to see bloody stool since yesterday. He was admitted to the hospital with fecal impaction. He had improvement, stable hospitalization, and went home. At that time, he refused to get any home health or rehab stay. He was discharged home with an H and H of 11.1 and he was staying at home in his usual status. Last night, he started to see a maroon-color bloody stool and generalized severe weakness. This morning, he fell at home and brought him here in the hospital. After the initial evaluation, his H and H was found to be 7.7/24.6, which was a significant change from the discharge and inpatient admission was recommended. Currently, he is not complaining of any chest pain or shortness of breath. He feels very weak. There has not been any changes on his medical condition for the last couple of days after he was discharged. Of note, the patient has a history of adenocarcinoma of the cecum, which was treated with right-sided hemicolectomy recently in 2016. 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 Also, the patient has a chronic atrial fibrillation and the history of heart failure and he was not on any anticoagulation due to this GI bleed issue. REVIEW OF SYSTEMS: There is no fever, no chills. No cough. No urination problem. The patient was discharged home with catheter inserted. At that time, he was having trouble with urinary retention. Dr. Li recommended continuing the Martin catheter drain for the next two weeks and he came back with it. There are no complaints related with his catheter at this point. No weight gain and weight loss according to the information available from them. All 14 systems are reviewed and negative except as mentioned above, PAST MEDICAL HISTORY: 1. COPD with chronic oxygen use. 2. Chronic respiratory failure. 3. Coronary artery disease status post stents and angioplasty. 4. Permanent atrial fibrillation, rate is controlled. 5. No oral anticoagulation due to GI bleed. History And Physical [address] [place]. [address] NAME: LORENA LARA : 32 STATUS : REG ER PAT#: [id number] AGE: 86 ADM/REG DATE : 07/31/16 MR#: [id number] REPORT SERV DATE: 07/31/16 DICTATED BY: FABIOLA JIMÉNEZ DATE: 07/31/16 REPORT STATUS : Draft TRANSCRIBED BY: BON DATE: 07/31/16 6. Chronic systolic congestive heart failure with ischemic cardiomyopathy. Ejection fraction was known to be 40% by echocardiogram in February 2016. 7. Status post AICD. 8. 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 9. Mitral regurgitation. 10.Chronic kidney disease stage 3. 11.Hypertension. 12.Hyperlipidemia. 13.Colon cancer with status post right side hemicolectomy. 14.Sleep apnea. 15.Peripheral neuropathy. 16.Type 2 diabetes mellitus. 17.Persistent leukocytosis. SOCIAL HISTORY: Quit smoking more than 10 years ago. ALLERGIES: AMIODARONE AND INFLUENZA VIRUS VACCINATION. MEDICATIONS AT HOME: 1. Albuterol three times a day. 2. Lipitor 40 mg once at bedtime. 3. Symbicort two puffs twice a day. 4. Plavix 75 mg once a day. 5. Digoxin 0.125 mg once a day. 6. Colace 100 mg twice a day. 7. Doxycycline for four more days. 8. Nexium 20 mg once a day. 9. Proscar 40 mg once a day. 10.Lasix 80 mg once a day. 11.Neurontin 200 mg twice a day. 12.NovoLog 50 units before meals. 13.Levemir 70 units twice a day. 14.Imdur 15 mg once a day. 15.Zaroxolyn 2.5 mg as needed. 16.Toprol-XL 150 mg once a day. 17.Potassium 20 mEq three times a day. 18.Prednisone tapering dose from the last admission. 19.Toradol 120 mg once at bedtime. 20.Flomax 0.4 mg once a day. 21.Spiriva one capsule once a day. 22.Integra, the iron supplement once a day. PHYSICAL EXAMINATION: VITAL SIGNS: Blood pressure 113/59, pulse of 76, temperature was 97.5, and respiratory rate was 20. GENERAL APPEARANCE: He is an ill-looking male patient. HEENT: Pupils are equal and round. Conjunctivae are slightly anemic and patient's History And Physical [address] [address] NAME: LORENA LARA : 32 STATUS : REG ER PAT#: [id number] AGE: 86 ADM/REG DATE : 07/31/16 MR#: [id number] REPORT SERV DATE: 07/31/16 DICTATED BY: FABIOLA JIMÉNEZ DATE: 07/31/16 REPORT STATUS : Draft TRANSCRIBED BY: BON DATE: 07/31/16 periorbital edema is noted. NECK: I was not able to hear carotid bruits. CHEST: The right base has a very coarse breathing sound and also left base has some crackles. CARDIOVASCULAR: I do not hear any murmurs. HEART: Regular rhythm and rate currently. ABDOMEN: Bowel sounds present. There is diffuse tenderness on the lower abdomen area. There is no rebound tenderness. EXTREMITIES: He has a skin abrasion on the left knee, in the left hand, and the right hand. He has a very minimal pitting edema. LABORATORY DATA: Shows sodium 139, potassium 5.2, chloride 104, BUN 88 and creatinine 1.92. WBC 31.1, hemoglobin 7.7, hematocrit 24.6, and platelet is 100. INR was 1.1. CT of the abdomen and pelvis is not showing any acute intraabdominal pathology. Chest x-ray showed possible right lower lobe infiltrate and right elbow was negative for fracture. ASSESSMENT AND PLAN: 1. Status post fall with generalized weakness secondary to acute anemia. 2. Anemia, acute on chronic. 3. Acute blood loss anemia. 4. Gastrointestinal bleed with a history of colon cancer. 5. Chronic respiratory failure, multifocal related with chronic obstructive pulmonary disease and heart failure. 6. Chronic systolic heart failure. 7. Recent admission with a fecal impaction, was treated with disimpaction and laxatives. 8. Urinary retention. The patient went home with the Martin catheter. Currently, no signs of acute infection with this catheter related. 9. History of a persistent leukocytosis, slightly improved. 10.History of permanent atrial fibrillation without oral anticoagulation. 11.Nonsustained ventricular tachycardia. On the last admission, his Sotalol and metoprolol were increased by hvac controls technician. Overall, the patient will be admitted to the hospital telemetry bed, and we will obtain GI consultation. We will transfuse this patient with using the IV diuretics in between the blood. Doubt clinically the right lower lobe infiltrate for pneumonia. We will repeat the chest x-ray tomorrow morning after the diuretic use. We will watch the cardiovascular and pulmonary status and continue supportive care for this multiorgan disease. EKL/MODL History And Physical [address] [address] NAME: LORENA LARA : 32 STATUS : REG ER PAT#: [id number] AGE: 86 ADM/REG DATE : 07/31/16 MR#: [id number] REPORT SERV DATE: 07/31/16 DICTATED BY: FABIOLA JIMÉNEZ DATE: 07/31/16 REPORT STATUS : Draft TRANSCRIBED BY: MODL DATE: 07/31/16 Fabiola Jiménez M.D. / [id number] CC: Giuliano Aguayo M.D.
[~2016-07-31 09:13] MED LIST changes: +LAN125 PO; +STERAPRED DS10 MG PO; +VIB50 PO
[2016-07-31 09:21] LABS: BASOPHILS 0.4 %; BASOPHILS ABSOLUTE 0.13 10/3/uL (0.0-0.16); EOSINOPHILS 0 %; IMMATURE GRANULOCYTES 7.8 %; IMMATURE GRANULOCYTES ABSOLUTE 2.42 10/3/uL (0.0-0.11); LYMPHOCYTES 7.5 %; LYMPHOCYTES ABSOLUTE 2.33 10/3/uL (0.67-4.30); MEAN CORPUS HGB CONC 31.3 g/dL (32.0-36.0); MEAN CORPUSCULAR HEMOGLOB 27.2 pg (26.0-34.0); MEAN CORPUSCULAR VOLUME 86.9 fL (80-100); MEAN PLATELET VOLUME 9.6 fL (9.2-13.0); MONOCYTES 9.6 %; MONOCYTES ABSOLUTE 2.97 10/3/uL (0.21-1.20); NEUTROPHILS 74.7 %; NEUTROPHILS ABSOLUTE 23.24 10/3/uL (2.02-8.40); RBC DISTRIBUTION WIDTH 19.5 % (12.0-16.0)
[2016-07-31 09:25] LABS: ER CBC TAT 0 Hrs 01 Mins; HEMATOCRIT 24.6 % (40.0-51.0); HEMOGLOBIN 7.7 g/dL (13.6-17.8); MANUAL DIFF NO %; PLATELET COUNT 180 10/3/uL (150-400); RED CELL COUNT 2.83 10/6/uL (4.7-6.1); WHITE BLOOD CELLS 31.1 10/3/uL (4.5-10.5)
[2016-07-31 09:26] LABS: NUCLEATED RED BLOOD CELLS 0.2 /100WBC (0-0)
[2016-07-31 09:34] LABS: A/G RATIO 0.6 (0.7-1.9); ALBUMIN 2.1 G/DL (3.5-5.0); ALKALINE PHOSPHATASE 78 U/L (45-117); CALCIUM, SERUM 8.3 MG/DL (8.5-10.4); CHLORIDE, SERUM 104 MMOL/L (96-112); CREATININE 1.92 MG/DL (0.70-1.30); GFR AFRICAN AMERICAN 36 ML/MIN (>=60); GFR NON AFRICAN AMERICAN 31 ML/MIN (>=60); GLOBULIN 3.6 G/DL (2.5-4.1); SGPT(ALT) 38 U/L (5-65); SODIUM, SERUM 139 MMOL/L (135-148); TOTAL PROTEIN 5.7 G/DL (6.0-8.5)
[2016-07-31 09:38] LABS: BUN (BLOOD UREA NITROGEN) 88 MG/DL (6-23); CO2 (CARBON DIOXIDE) 27 MMOL/L (24-34); GLUCOSE, SERUM 93 MG/DL (60-99); POTASSIUM, SERUM 5.2 MMOL/L (3.5-5.3); TOTAL BILIRUBIN 0.7 MG/DL (0-1.2)
[2016-07-31 09:39] LABS: SGOT(AST) 38 U/L (5-40)
[2016-07-31 09:45] LABS: BAND NEUTROPHILS 6 %; EOSINOPHILS 1 %; EOSINOPHILS ABSOLUTE (CALC) 0.31 10/3/uL (0.0-0.53); ER DIFF TAT 0 Hrs 21 Mins; IMMATURE GRANS ABSOLUTE (CALC) 2.49 10/3/uL (0.0-0.11); LYMPHOCYTES 7 %; LYMPHOCYTES ABSOLUTE (CALC) 2.18 10/3/uL (0.67-4.30); METAMYELOCYTES 4 %; MONOCYTES 11 %; MONOCYTES ABSOLUTE (CALC) 3.42 10/3/uL (0.21-1.20); MYELOCYTES 4 %; PLATELET ESTIMATE ADQ (ADEQUATE); SEGMENTED NEUTROPHIL (0) 67 %; TOTAL NUCLEATED CELLS 100
[2016-07-31 09:46] LABS: ANISOCYTOSIS 1+ (5-10/OIF) (0-5/OIF); MICROCYTES 1+ (5-10/OIF) (0-5/OIF)
[2016-07-31 11:06] LABS: ASCORBIC ACID (UR NOT ORDER) NEG (NEG); BILIRUBIN, URINE NEGATIVE (NEG); ER URINALYSIS TAT 0 Hrs 18 Mins; KETONE, URINE NEGATIVE (NEG); LEUKOCYTE ESTERASE(NOT OR SMALL (NEG); NITRITE (URINE) NEG (NEG); WBC (NOT ORDERED) (RFLEX) 13 (0-5)
[2016-07-31 11:26] LABS: INTERNATIONAL NORMAL RATI 1.1 UNITS (-); PARTIAL THROMBO TIME 24.1 SEC (22.5-37.2)
[2016-07-31] MEDS ORDERED: LIPITOR40 PO (11:53)
[2016-07-31] MEDS ORDERED: ALBUTEROL0.083 % INH (11:53)
[2016-07-31] MEDS ORDERED: LEVEMIR SC (11:53)
[2016-07-31] MEDS ORDERED: LAN125 PO (11:54)
[2016-07-31] MEDS ORDERED: NOVOLOG SC (11:54)
[2016-07-31] MEDS ORDERED: SPIRIVA INH (11:54)
[2016-07-31] MEDS ORDERED: SYMBICORT 160/41 INH INH (11:54)
[2016-07-31] MEDS ORDERED: PLAVIX PO (11:55)
[2016-07-31] MEDS ORDERED: FLOMAX4 PO (11:55)
[2016-07-31] MEDS ORDERED: KLOR-CON M2020 MEQ PO (11:55)
[2016-07-31] MEDS ORDERED: BETAP120 PO (11:55)
[2016-07-31] MEDS ORDERED: P10 PO (11:56)
[2016-07-31] MEDS ORDERED: TOPXL50 PO (11:56)
[2016-07-31] MEDS ORDERED: IMDUR30 PO (11:57)
[2016-07-31] MEDS ORDERED: NEUR100 PO (11:57)
[2016-07-31] MEDS ORDERED: PROSCAR5 PO (11:57)
[2016-07-31] MEDS ORDERED: DSS PO (11:58)
[2016-07-31] MEDS ORDERED: NEXIUM20 M1 PO (11:58)
[2016-07-31] MEDS ORDERED: ZAROX2.5B PO (11:58)
[2016-07-31] MEDS ORDERED: INTEGRA PO (11:58)
[2016-07-31] MEDS ORDERED: L80 PO (11:58)
[2016-07-31] MEDS ORDERED: VIBRATAB100 MG PO (11:59)
[2016-07-31 16:52] LABS: HEMOGLOBIN 8.9 g/dL (13.6-17.8)
[2016-08-01 05:37] LABS: HEMATOCRIT 31.8 % (40.0-51.0); HEMOGLOBIN 10.2 g/dL (13.6-17.8)
[2016-08-01 09:54] LABS: CALCIUM, SERUM 8.1 MG/DL (8.5-10.4); CHLORIDE, SERUM 99 MMOL/L (96-112); CO2 (CARBON DIOXIDE) 26 MMOL/L (24-34); CREATININE 2.31 MG/DL (0.70-1.30); GFR AFRICAN AMERICAN 29 ML/MIN (>=60); GFR NON AFRICAN AMERICAN 25 ML/MIN (>=60); POTASSIUM, SERUM 5.7 MMOL/L (3.5-5.3); SODIUM, SERUM 137 MMOL/L (135-148)
[2016-08-01 10:02] LABS: BUN (BLOOD UREA NITROGEN) 99 MG/DL (6-23); GLUCOSE, SERUM 195 MG/DL (60-99)
[2016-08-01 11:41] LABS: HEMATOCRIT 29.9 % (40.0-51.0); HEMOGLOBIN 9.7 g/dL (13.6-17.8)
[2016-08-01 18:39] LABS: HEMATOCRIT 28.5 % (40.0-51.0); HEMOGLOBIN 9.3 g/dL (13.6-17.8)
[2016-08-02 06:54] LABS: BUN (BLOOD UREA NITROGEN) 82 MG/DL (6-23); CHLORIDE, SERUM 104 MMOL/L (96-112); CO2 (CARBON DIOXIDE) 25 MMOL/L (24-34); CREATININE 1.92 MG/DL (0.70-1.30); GFR AFRICAN AMERICAN 36 ML/MIN (>=60); GFR NON AFRICAN AMERICAN 31 ML/MIN (>=60); GLUCOSE, SERUM 93 MG/DL (60-99); POTASSIUM, SERUM 3.8 MMOL/L (3.5-5.3); SODIUM, SERUM 140 MMOL/L (135-148)
[2016-08-02 14:39] LABS: HEMATOCRIT 26.7 % (40.0-51.0); HEMOGLOBIN 8.8 g/dL (13.6-17.8)
[2016-08-02 22:32] LABS: HEMATOCRIT 26.1 % (40.0-51.0); HEMOGLOBIN 8.4 g/dL (13.6-17.8)
[2016-08-03 05:16] LABS: CALCIUM, SERUM 8.4 MG/DL (8.5-10.4); CHLORIDE, SERUM 104 MMOL/L (96-112); CO2 (CARBON DIOXIDE) 25 MMOL/L (24-34); CREATININE 1.75 MG/DL (0.70-1.30); GFR AFRICAN AMERICAN 40 ML/MIN (>=60); GFR NON AFRICAN AMERICAN 35 ML/MIN (>=60); HEMATOCRIT 25.6 % (40.0-51.0); HEMOGLOBIN 8.5 g/dL (13.6-17.8); MEAN CORPUSCULAR HEMOGLOB 28.6 pg (26.0-34.0); MEAN CORPUSCULAR VOLUME 86.2 fL (80-100); MEAN PLATELET VOLUME 10.3 fL (9.2-13.0); NUCLEATED RED BLOOD CELLS 0.3 /100WBC (0-0); PHOSPHORUS, SERUM 3.1 MG/DL (2.5-4.5); PLATELET COUNT 189 10/3/uL (150-400); POTASSIUM, SERUM 4.5 MMOL/L (3.5-5.3); RBC DISTRIBUTION WIDTH 18.5 % (12.0-16.0); RED CELL COUNT 2.97 10/6/uL (4.7-6.1); SODIUM, SERUM 139 MMOL/L (135-148)
[2016-08-03 05:17] LABS: BUN (BLOOD UREA NITROGEN) 67 MG/DL (6-23); GLUCOSE, SERUM 73 MG/DL (60-99); MANUAL DIFF YES %; MEAN CORPUS HGB CONC 33.2 g/dL (32.0-36.0); WHITE BLOOD CELLS 37.6 10/3/uL (4.5-10.5)
[2016-08-03 05:59] LABS: ANISOCYTOSIS 1+ (5-10/OIF) (0-5/OIF); BAND NEUTROPHILS 13 %; LYMPHOCYTES 7 %; LYMPHOCYTES ABSOLUTE (CALC) 2.63 10/3/uL (0.67-4.30); MONOCYTES 3 %; MONOCYTES ABSOLUTE (CALC) 1.13 10/3/uL (0.21-1.20); NEUTROPHILS ABSOLUTE (CALC) 33.84 10/3/uL (2.02-8.40); PLATELET ESTIMATE ADQ (ADEQUATE); SEGMENTED NEUTROPHIL (0) 77 %; TOTAL NUCLEATED CELLS 100
[2016-08-03 06:00] LABS: ELLIPTOCYTES 1+ (3-10/OIF) (0-2/OIF); POIKILOCYTOSIS 1+ (5-10/OIF) (0-5/OIF)
[2016-08-03 10:53] LABS: CEA 1.5 NG/ML
[2016-08-03 13:22] LABS: HEMATOCRIT 26.2 % (40.0-51.0); HEMOGLOBIN 8.3 g/dL (13.6-17.8)
[2016-08-03 20:52] LABS: HEMOGLOBIN 7.4 g/dL (13.6-17.8)
[2016-08-03 20:53] LABS: HEMATOCRIT 22.9 % (40.0-51.0)
[2016-08-04 05:41] LABS: HEMATOCRIT 24.2 % (40.0-51.0); HEMOGLOBIN 7.8 g/dL (13.6-17.8); MEAN CORPUS HGB CONC 32.2 g/dL (32.0-36.0); MEAN CORPUSCULAR HEMOGLOB 28.7 pg (26.0-34.0); NUCLEATED RED BLOOD CELLS 0.3 /100WBC (0-0); PLATELET COUNT 196 10/3/uL (150-400); RBC DISTRIBUTION WIDTH 19.1 % (12.0-16.0); RED CELL COUNT 2.72 10/6/uL (4.7-6.1)
[2016-08-04 05:42] LABS: MANUAL DIFF YES %; WHITE BLOOD CELLS 31.5 10/3/uL (4.5-10.5)
[2016-08-04 05:47] LABS: CALCIUM, SERUM 8.5 MG/DL (8.5-10.4); CHLORIDE, SERUM 105 MMOL/L (96-112); CO2 (CARBON DIOXIDE) 26 MMOL/L (24-34); CREATININE 1.78 MG/DL (0.70-1.30); GFR AFRICAN AMERICAN 39 ML/MIN (>=60); GFR NON AFRICAN AMERICAN 34 ML/MIN (>=60); POTASSIUM, SERUM 5.2 MMOL/L (3.5-5.3); SODIUM, SERUM 139 MMOL/L (135-148)
[2016-08-04 05:48] LABS: BUN (BLOOD UREA NITROGEN) 55 MG/DL (6-23); GLUCOSE, SERUM 171 MG/DL (60-99)
[2016-08-04 06:02] LABS: ANISOCYTOSIS 1+ (5-10/OIF) (0-5/OIF); BAND NEUTROPHILS 17 %; IMMATURE GRANS ABSOLUTE (CALC) 0.95 10/3/uL (0.0-0.11); LYMPHOCYTES 4 %; LYMPHOCYTES ABSOLUTE (CALC) 1.26 10/3/uL (0.67-4.30); MACROCYTES 1+ (5-10/OIF) (0-5/OIF); METAMYELOCYTES 3 %; MONOCYTES 11 %; MONOCYTES ABSOLUTE (CALC) 3.47 10/3/uL (0.21-1.20); NEUTROPHILS ABSOLUTE (CALC) 25.83 10/3/uL (2.02-8.40); PLATELET ESTIMATE ADQ (ADEQUATE); POLYCHROMASIA 1+ (2-5/OIF) (0-1/OIF); SEGMENTED NEUTROPHIL (0) 65 %; TOTAL NUCLEATED CELLS 100
[2016-08-04 12:46] LABS: HEMATOCRIT 25.2 % (40.0-51.0); HEMOGLOBIN 7.9 g/dL (13.6-17.8)
[2016-08-04 21:05] LABS: HEMATOCRIT 24.3 % (40.0-51.0); HEMOGLOBIN 7.7 g/dL (13.6-17.8)
[2016-08-05 06:41] LABS: HEMATOCRIT 31.4 % (40.0-51.0)
[2016-08-05 12:46] LABS: HEMATOCRIT 33.7 % (40.0-51.0); HEMOGLOBIN 10.9 g/dL (13.6-17.8)
== END 2016-08-05 16:40 | disposition hospice, home (50) | DRG 378 ==
LOC: ER 09:13 → 6NO 14:00
PROVIDERS: Hospitalist; Internal Medicine; Nurse Practitioner Family
PROC: 30233N1 Transfusion of Nonautologous Red Blood Cells into Peripheral Vein, Percutaneous Approach (ICD-10-PCS; principal; 2016-08-04)
PROC: 4B02XTZ Measurement of Cardiac Defibrillator, External Approach (ICD-10-PCS; 2016-08-05)
DX: K92.2 Gastrointestinal hemorrhage, unspecified (principal); J96.11 Chronic respiratory failure with hypoxia; N18.4 Chronic kidney disease, stage 4 (severe); S22.42XA Multiple fractures of ribs, left side, initial encounter for closed fracture; J96.12 Chronic respiratory failure with hypercapnia; I50.22 Chronic systolic (congestive) heart failure; I13.0 Hypertensive heart and chronic kidney disease with heart failure and stage 1 through stage 4 chronic kidney disease, or unspecified chronic kidney disease; E11.22 Type 2 diabetes mellitus with diabetic chronic kidney disease; D62 Acute posthemorrhagic anemia; Z99.81 Dependence on supplemental oxygen; J44.9 Chronic obstructive pulmonary disease, unspecified; W19.XXXA Unspecified fall, initial encounter; Z51.5 Encounter for palliative care; I25.5 Ischemic cardiomyopathy; I25.10 Atherosclerotic heart disease of native coronary artery without angina pectoris; E78.5 Hyperlipidemia, unspecified; I48.2 Chronic atrial fibrillation; R33.9 Retention of urine, unspecified; Z95.810 Presence of automatic (implantable) cardiac defibrillator; Z85.038 Personal history of other malignant neoplasm of large intestine; Z79.4 Long term (current) use of insulin; Z90.49 Acquired absence of other specified parts of digestive tract; Z79.2 Long term (current) use of antibiotics
CPT/HCPCS: 36415; 36430; 71010; 71020; 71100-LT; 73080-RT; 74176; 80048; 80053; 80069; 81001; 82270; 82378; 82962; 85014; 85018; 85025; 85610; 85730; 86850; 86900; 86901; 86920; 87040; 87086; 93005; 94640; 94667; 94668; 96374; 96375; 96376; 97161-GP; 99291; A9270-GY; C9113; G8978-CM-GP; G8979-CM-GP; G8980-CM-GP; J0690; J1940; J2405; P9016